=== PATIENT | female | born 1990 | race Caucasian/White ===

== ENCOUNTER 2020-08-02 10:15 | Inpatient (IN) ==
[2020-08-02] MEDS ORDERED: NALBUPHINE HCL 10 MG/ML AMPUL IV PRN ×2 (11:55)
[2020-08-02] MEDS ORDERED: LIDOCAINE HCL 50 ML VIAL PERI PRN (11:55)
[2020-08-02] MEDS ORDERED: ONDANSETRON 4 MG TAB.RAPDIS PO PRN (11:55)
[2020-08-02] MEDS ORDERED: OXYTOCIN/0.9 % SODIUM CHLORIDE 30 UNITS/500 ML BAG IV ONE (11:55)
[2020-08-02] MEDS ORDERED: BUTORPHANOL TARTRATE 2 MG/ML VIAL IV PRN ×2 (11:55)
[2020-08-02] MEDS ORDERED: RINGER'S SOLUTION,LACTATED 1,000 ML IV ONE (11:55)
--- NOTE | 2020-08-02 13:26 | HP ---
Chief Complaint - Chief Complaint Date of Service: 08/02/20 Time of Service: 13:18 Chief Complaint: leakage of fluid History of Present Illness: 29 year old at 39w 4d who presented to the office due to leakage of fluid of small amounts of fluid. The patient denies ctx. She denies vb. Fetus is active. Medical History (Last Reviewed 08/02/20 @ 13:20 by Jeane Fair MD) Anxiety Vulvodynia Surgical History: Surgical History (Last Reviewed 08/02/20 @ 13:20 by Jeane Fair MD) Birthmark Onset Date: ~1993 laser surgery removal of 5 birthmarks History of eye surgery Onset Date: ~2011 History of removal of cyst Onset Date: ~2008 left jaw [place] teeth extracted Onset Date: ~2015 Family History: Family History (Last Reviewed 08/02/20 @ 13:20 by Jeane Fair MD) Mother Hypertension Diabetes Depression Father Depression Grandfather Heart disease Grandmother Hypertension Myocardial infarction Diabetes Social History: (Last Reviewed 08/02/20 @ 13:20 by Jeane Fair MD) Social History: Marital status: current occupational status: employed current occupation: die caster Highest level of school completed/degree received: Bachelor's degree Service: No Tobacco: Smoking Status: Never smoker Alcohol: alcohol intake: former Substance Use: substance use type: does not use Review Of Systems (GEN) - Review of Systems Generalized/Overall Review: Present: No Symptoms Reported Genitourinary: Present: Other - loss of fluid Misc: All systems neg except as marked Allergies/Adverse Reactions: Allergies Allergy/AdvReac Type Severity Reaction Status Date / Time No Known Allergies Allergy Verified 07/31/20 09:15 Home Medications: HOME MEDICATIONS cholecalciferol (vitamin D3) 50 mcg (2,000 unit) capsule 50 mcg PO DAILY 07/07/20 [Last Taken Unknown] escitalopram oxalate 20 mg tablet 20 mg PO DAILY 07/07/20 [Last Taken Unknown] Lysine HCl [l-Lysine] 500 mg PO PRN 07/19/20 [Last Taken Unknown] hydrOXYzine PAMOATE [Vistaril] 25 mg PO PRN PRN 07/19/20 [Last Taken Unknown] folic acid 400 mcg tablet 400 mcg PO DAILY 07/26/20 [Last Taken Unknown] multivitamin 1 tab PO DAILY 07/26/20 [Last Taken Unknown] Exam - Exam Vital Signs: Vital Signs - Last Taken Temp 36.3 C 08/02/20 11:44 Pulse 116 H 08/02/20 11:44 Resp 16 08/02/20 11:44 BP 131/74 08/02/20 11:44 Pulse Ox 96 08/02/20 11:44 Constitutional: Present: Alert, Oriented x3, Cooperative, No distress ENT Exam: Present: hearing grossly normal Eye Exam: bilateral eye: normal inspection Neck: Present: normal inspection Back Exam: Present: normal inspection Breasts: Present: Exam deferred Respiratory: Present: lungs clear, normal breath sounds, no respiratory distress Cardiovascular/Chest: Present: regular rate, rhythm Abdomen: Present: soft, nontender, nondistended Extremity: Present: non-tender, no calf tenderness Skin Exam: Present: normal color, warm/dry, no cyanosis Neurologic: Present: alert, normal mood/affect, oriented x 3 Appearance: Present: appropriate appearance, appropriate insight, neat, no memory impairment Eye contact: Present: cooperative, good eye contact, normal speech Thoughts: Present: normal thought pattern Assessment/Plan - Narrative Narrative: 29 year old at 39w 4d 1. PROM confirmed in examination performed in the office. I counseled the patient regarding immediate IOL due to the risk of chorioamnionitis and endometritis. She declines. Shared decision making of a period of 12 hours. Reassess cervical exam at 7 pm once the patient has been ruptured for 12 hours. Start antibiotics once ruptured for 24 hours. 2. GBS negative - Assessment/Plan (1) 39 weeks gestation of Problem: Acute (2) PROM (premature rupture of membranes) Problem: Acute Qualifiers: PROM onset of labor timing: unspecified duration between rupture of membranes and onset of labor PROM gestational age: full term Qualified Code(s): O42.92 - Full-term premature rupture of membranes, unspecified as to length of time between rupture and onset of labor (3) Normal first in third trimester Problem: Acute
[2020-08-02] MEDS ORDERED: hydrOXYzine PAMOATE 25 MG CAPSULE PO PRN (13:27)
[2020-08-02] MEDS ORDERED: LIDOCAINE 5 APPL TUBE TP ONE (13:27)
--- NOTE | 2020-08-02 19:15 | PN ---
Progess Note - Interim Date: 08/02/20 Time: 19:13 Narrative: 08/02/20 19:13 Patient without complaints cvx unchanged Start pitocin at 1 milliunit/minute and increase by 1 milliunit/minute FHT cat 1
[2020-08-02] MEDS: RINGER'S SOLUTION,LACTATED 1,000 ML IV PRN (19:22)
[2020-08-03] MEDS: RINGER'S SOLUTION,LACTATED 1,000 ML IV PRN ×2 (03:21→05:31)
[2020-08-03] MEDS ORDERED: BUPIVACAINE HCL/0.9 % NACL/PF 250 ML EP PRN (03:37)
[2020-08-03] MEDS ORDERED: NALOXONE HCL 1 MG/1 ML SYRG IV PRN (03:37)
[2020-08-03] MEDS ORDERED: ONDANSETRON HCL/PF 2 MG/ML VIAL IV PRN (03:37)
[2020-08-03] MEDS ORDERED: fentaNYL CITRATE/PF 50 MCG/ML AMPUL IT SCH (03:45)
--- NOTE | 2020-08-03 04:56 | ANES ---
Post Anesthesia Discharge - Transfer of Care Transfer of Care handoff given to nurse: Yes - Anesthesia Post Op Note Anesthesia Post Op Note: Care transferred to OB RN
--- NOTE | 2020-08-03 04:56 | ANES ---
Anesthesia Pre Procedure Eval Vitals/Labs: Last Vital Signs Temp 36.8 C 08/03/20 04:20 Pulse 99 08/03/20 04:20 Resp 18 08/03/20 04:20 BP 132/74 08/03/20 04:20 Pulse Ox 99 08/03/20 04:20 HOME MEDICATIONS cholecalciferol (vitamin D3) 50 mcg (2,000 unit) capsule 50 mcg PO DAILY 07/07/20 [Last Taken Unknown] escitalopram oxalate 20 mg tablet 20 mg PO DAILY 07/07/20 [Last Taken Unknown] Lysine HCl [l-Lysine] 500 mg PO PRN 07/19/20 [Last Taken Unknown] hydrOXYzine PAMOATE [Vistaril] 25 mg PO PRN PRN 07/19/20 [Last Taken Unknown] folic acid 400 mcg tablet 400 mcg PO DAILY 07/26/20 [Last Taken Unknown] multivitamin 1 tab PO DAILY 07/26/20 [Last Taken Unknown] Allergies/Adverse Reactions: Allergies Allergy/AdvReac Type Severity Reaction Status Date / Time No Known Allergies Allergy Verified 07/31/20 09:15 - Planned Procedure Planned Procedure: active labor Medication List Reviewed:: Yes Allergies Verified: Yes Medical History (Last Reviewed 08/03/20 @ 04:55 by Sukhwinder Mata CRNA) Anxiety Vulvodynia Surgical History (Last Reviewed 08/03/20 @ 04:55 by Sukhwinder Mata CRNA) Birthmark Onset Date: ~1993 laser surgery removal of 5 birthmarks History of eye surgery Onset Date: ~2011 History of removal of cyst Onset Date: ~2008 left jaw [place] teeth extracted Onset Date: ~2015 Family History (Last Reviewed 08/03/20 @ 04:55 by Sukhwinder Mata CRNA) Mother Hypertension Diabetes Depression Father Depression Grandfather Heart disease Grandmother Hypertension Myocardial infarction Diabetes - Family Anesthesia History Family History:: no untoward family reactions to anesthesia - Airway/Neck/Teeth Within Normal Limits:: Yes Teeth Condition: intact Neck Exam: full range of motion Mallampatti Score: 2 Thyromental (T-M) distance: > 6 cm Mandibulo Hyoid distance: > 3 cm - Respiratory Respiratory Physical: lungs clear Smoking Status: Never smoker Sleep Apnea currently treated: No Sleep Apnea by current assessment: No - Cardiovascular Tolerate Activity: Good Heart Sounds: S1 & S2, Regular - Gastrointestinal NPO since: mn - Anesthesia Assessment and Plan ASA Class: PS, II, E Anesthesia Type Plan: Epidural Planned difficult intubation/equipment available: No
--- NOTE | 2020-08-03 04:57 | ANES ---
Post Anesthesia Assessment - Vital Signs Vitals: Last Vital Signs Temp 36.8 C 08/03/20 04:20 Pulse 99 08/03/20 04:20 Resp 18 08/03/20 04:20 BP 132/74 08/03/20 04:20 Pulse Ox 99 08/03/20 04:20 Airway Patency: Normal - Mental Status Level Of Consciousness: Awake - Pain Level Pain Score: 2 - N/V Assessment Nausea/Vomiting Presence: None Dehydration:: No
--- NOTE | 2020-08-03 04:58 | ANES ---
Anesthesia Procedure Note Procedure Note: ANESTHESIA PROCEDURE NOTE Date of Procedure: 08/03/2020 Time of procedure: . Performed by: Mehdi Mata CRNA Piano Regulator Inspector: None. Preprocedure diagnosis: Active labor. Post procedure diagnosis: Same. Procedure: Insertion of labor epidural. Indications: The patient is a 29-year-old prima para female in active labor requesting labor epidural for pain management. Findings: See below. Details of the procedure: The patient was placed in a sitting position. Back was prepped with DuraPrep. Patient was then draped in a sterile fashion. Lidocaine 1% was infiltrated to the skin and subcutaneous tissues at the level of the L3 4 interspace. The epidural space was identified using a 18-gauge Tuohy needle with [id number] technique. 20 mcg fentanyl was given intrathecally using a 27 ga. spinal needle. Epidural catheter was inserted without difficulty. Negative test dose was elicited using 5 mL of 1.5% preservative-free lidocaine plus epinephrine 1 200,000. The epidural catheter was then taped and secured in place. EBL: Minimal. Fluids: N/A. Specimen: N/A. Post procedure condition: The patient tolerated the procedure well. No complications were noted. Thank you for this consultation. Connell CRNA
[2020-08-03] MEDS ORDERED: diphenhydrAMINE HCL 25 MG CAPSULE PO PRN (06:32)
[2020-08-03] MEDS ORDERED: HYDROCORTISONE 30 APPL TUBE TP PRN (06:32)
[2020-08-03] MEDS ORDERED: BISACODYL 10 MG SUPP.RECT RC PRN (06:32)
[2020-08-03] MEDS ORDERED: HYDROcodone/ACETAMINOPHEN 1 EACH TABLET PO PRN ×2 (06:32)
[2020-08-03] MEDS ORDERED: OXYTOCIN/0.9 % SODIUM CHLORIDE 30 UNITS/500 ML BAG IV ONE (06:32)
[2020-08-03] MEDS ORDERED: SENNOSIDES 8.6 MG TABLET PO PRN (06:32)
[2020-08-03] MEDS ORDERED: GLYCERIN/WITCH HAZEL LEAF 40 APPL BOX TP PRN (06:32)
[2020-08-03] MEDS ORDERED: BENZOCAINE/MENTHOL 81 SPRAY CAN TP PRN (06:32)
--- NOTE | 2020-08-03 06:34 | OR ---
Operative Report - Dictated Report Narrative: Date of delivery: 08/03/2020 Time of delivery: 619 Gender: female weight: 3432 grams APGARS: 7/8 Procedure: Description of the procedure: The patient is a 29 year old at 39w 5d who presented to office yesterday and was confirmed to have ruptured membranes. She declined immediate induction and a 12 hour period of expectant management was undertaken as the patient understood and accepted the risks of doing so. After 12 hours she was augmented with pitocin and progressed to complete dilation. She delivered a viable female in AMADOU presentation. The shoulders delivered without any difficulty followed by the rest of the infant. Cord clamping was delayed for 60 seconds due to vigorous . The cord was clamped and cut. Cord blood was collected. The placenta delivered by expression and appeared intact. A second degree perineal laceration was repaired using 3-0 rapide. EBL: 350 mL Cytotec 1000 mcg was given rectally due to uterine atony. Complications: none Specimens: cord blood, placenta
[2020-08-03] MEDS ORDERED: MISOPROSTOL 200 MCG TABLET RC ONE (06:45)
[2020-08-03] MEDS ORDERED: PENICILLIN G POTASSIUM 5 MILLIONUNT in DEXTROSE 5 % IN WATER 100 ML IV ONE ×2 (07:00)
[2020-08-03] MEDS ORDERED: PENICILLIN G POTASSIUM 2.5 MILLIONUNT in DEXTROSE 5 % IN WATER 100 ML IV SCH ×2 (11:00)
[2020-08-03] MEDS: DOCUSATE SODIUM 100 MG CAPSULE PO SCH ×2 (12:31→21:19)
[2020-08-03] MEDS: MULTIVITAMINS 1 CAP CAPSULE PO SCH (12:31)
[2020-08-03] MEDS: ESCITALOPRAM OXALATE 10 MG TAB PO SCH ×2 (12:31→19:45)
[2020-08-03] MEDS: CHOLECALCIFEROL 1,000 UNIT CAPSULE PO SCH (12:31)
[2020-08-03] MEDS: IBUPROFEN 800 MG TABLET PO PRN (19:45)
[2020-08-04] MEDS: IBUPROFEN 800 MG TABLET PO PRN ×3 (04:00→21:05)
[2020-08-04] MEDS: DOCUSATE SODIUM 100 MG CAPSULE PO SCH ×2 (10:35→21:05)
[2020-08-04] MEDS: ESCITALOPRAM OXALATE 10 MG TAB PO SCH (10:35)
[2020-08-04] MEDS: CHOLECALCIFEROL 1,000 UNIT CAPSULE PO SCH (10:36)
[2020-08-04] MEDS: MULTIVITAMINS 1 CAP CAPSULE PO SCH (10:37)
--- NOTE | 2020-08-04 17:40 | PN ---
Subjective - Date and Time Seen Date: 08/04/20 Time: 17:40 Objective - Vitals Vitals: Last Vital Signs Temp 36.7 C 08/04/20 12:30 Pulse 112 H 08/04/20 12:30 Resp 16 08/04/20 12:30 BP 140/68 H 08/04/20 12:30 Pulse Ox 98 08/04/20 12:30 Patient denies complaints. Breast-feeding Lochia wnl abdomen - soft, nontender Uterus -firm, at umbilicus - 1 No calf tenderness Impression: day #1 - s/p spontaneous vaginal delivery. Plan: Continue routine care
[2020-08-04] MEDS ORDERED: NEOMYCIN/BACITRACIN/POLYMYXINB 15 APPL TUBE TP SCH (18:30)
[2020-08-05 07:13] VITALS: BP 129/81
[2020-08-05] MEDS: DOCUSATE SODIUM 100 MG CAPSULE PO SCH (09:04)
[2020-08-05] MEDS: MULTIVITAMINS 1 CAP CAPSULE PO SCH (09:04)
[2020-08-05] MEDS: CHOLECALCIFEROL 1,000 UNIT CAPSULE PO SCH (09:04)
[2020-08-05] MEDS: IBUPROFEN 800 MG TABLET PO PRN (09:04)
[2020-08-05] MEDS: ESCITALOPRAM OXALATE 10 MG TAB PO SCH (09:04)
--- NOTE | 2020-08-05 11:05 | PN ---
Subjective - Date and Time Seen Date: 08/05/20 Time: 11:04 Objective - Vitals Vitals: Last Vital Signs Temp 36.7 C 08/05/20 07:00 Pulse 94 08/05/20 07:00 Resp 16 08/05/20 07:00 BP 129/81 08/05/20 07:00 Pulse Ox 100 08/05/20 07:00 Patient denies complaints. Breast-feeding. Lochia wnl abdomen - soft, nontender Uterus -firm, at umbilicus - 2 No calf tenderness Impression: day #2 - s/p spontaneous vaginal delivery. Plan: Routine discharge instructions
--- NOTE | 2020-08-05 11:10 | DS ---
OB Discharge Summary Delivery Date: 08/03/20 Delivery Time: 06:20 :: 1 Para:: 1 Gestational weeks:: 39 Gestational days:: 5 Intrapartum Procedures: Spontaneous Vaginal Delivery, Delivered, Anesthesia - Epidural Procedures: Other - Repair of 2nd vaginal laceration /OP Complications: No Complications Discharge Diagnosis: Term -Delivered - Discharge Information Date of Discharge: 08/05/20 Hospital Course: 29-year-old 1 para 0 admitted at 39 5/7 weeks for induction of labor due to premature rupture of membranes. Her delivery was complicated by a second- degree vaginal laceration which was repaired without difficulty. Her course was uncomplicated and she was discharged on day 2 with routine discharge instructions. Discharge Location: Home Disposition: Home self-care Condition: Good Activity on Discharge:: Activity as tolerated, Pelvic Rest Discharge Diet: General/regular food Additional Patient Instructions (free text): vIet [facility] to schedule your follow up appointment for [address] Fair. Asher has an appointment on FridayAugust [address] Cary. Her blood type is A- Discharge weight 7 lbs 0.5 oz Discharge bilirubin 6.8 Continue to breastfeed Asher every 2-[address] her on her back to sleep in her own bassinet or crib. No loose blankets, bumper pads, stuffed animals or pillows. Thank you for choosing [facility]. If you have any questions or concerns please don't hesitate to call us at [phone]. Prescriptions (Any new or edited meds): Escitalopram Oxalate [Lexapro] 20 mg PO DAILY 90 Days #90 Prescription Printed hydrOXYzine PAMOATE [Vistaril] 25 mg PO PRN PRN #30 PRN Reason: Anxiety Prescription Printed Complete Home Medications List: Complete Home Medication List: cholecalciferol (vitamin D3) 50 mcg (2,000 unit) capsule 50 mcg PO DAILY 07/07/20 Lysine HCl [l-Lysine] 500 mg PO PRN 07/19/20 multivitamin 1 tab PO DAILY 07/26/20 Ibuprofen [Motrin] 800 mg PO Q6H PRN tab 08/03/20 Escitalopram Oxalate [Lexapro] 20 mg PO DAILY 90 Days #90 08/04/20 hydrOXYzine PAMOATE [Vistaril] 25 mg PO PRN PRN #30 08/04/20 - Plan Discharge to:: Home Follow up in office in:: 3-4 weeks - Alpha Information Weight (Grams): 3,432 Infant Sex: Female Score 1 min: 7 Score 5 min: 9 Circumcision: Not Applicable Infant Complications: Meconium, Other Other Complications: Antibiotics given for respiratory distress, rupture of membranes of 22 hr. ALIVIA assessment form d/t mom on Lexapro. Refused Hepatitis B at delivery.
== END 2020-08-05 13:35 | disposition home or self-care (01) | DRG 807 ==
LOC: OB 10:15
PROVIDERS: ADMIT Obstetrics & Gynecology; ATTEND Obstetrics & Gynecology